=== PATIENT | female | born 1980 | race African-American/Black ===

== ENCOUNTER 2021-02-12 14:20 | Emergency (ER) | payer OTHER ==
[2021-02-12 14:58] VITALS: BP 121/79; PULSE 87; TEMP 98.6; BMI 20.3
== END 2021-02-12 16:26 | disposition home or self-care (01) ==
LOC: JER 14:20
DX: R11.10 Vomiting, unspecified (principal); R05.1 Acute cough
CPT/HCPCS: 87651; 87804; 99283-25; C9803-CS; U0003; U0005